=== PATIENT | male | born 1960 | race Caucasian/White ===

== ENCOUNTER 2020-05-25 00:18 | Emergency (ER) | payer SELFPAY ==
[2020-05-25 00:23] VITALS: BP 124/81; PULSE 108; RESP 16; TEMP 35.7; O2SAT 96; BMI 23.7
--- NOTE | 2020-05-25 00:50 | PC.NURSE ---
Pt resting quietly in bed at this time, law enforcement/C.O. at bedside, pt alert and oriented and answers questions appropriately.
--- NOTE | 2020-05-25 00:57 | W.ED.GENADLT ---
HPI - General Adult General: Chief complaint: Urogenital-Male Stated complaint: covid exposure 2 weeks ago Time Seen by Provider: 05/25/20 00:49 History of Present Illness: HPI narrative: Patient is a currently incarcerated 59-year-old male comes to the ED with left testicle pain. Patient says symptoms started earlier today. Today he is started having left testicle swelling and tenderness. He says his pain is currently a 7 out of 10. Denies any fever, chills, nausea/vomiting, abdominal pain, bladder or bowel symptoms, past history of STDs, genital lesions, discharge from [facility]. Patient did say he has a history of a right inguinal hernia that he had repaired years ago. Associated symptoms: Deny chest pain, dyspnea, headache(s), nausea, rash, palpitations or vomiting Review of Systems Const: Denies: fever(s), chills or fatigue Eyes: Denies: change in vision or eye discomfort ENMT: Denies: throat pain, odynophagia, nasal discharge or nasal congestion Card: Denies: chest pain, palpitations, edema, swelling of feet/ankles, dyspnea on exertion or orthopnea Resp: Denies: dyspnea, productive cough or non-productive cough GI: Denies: abdominal pain, nausea, vomiting, diarrhea, constipation or hematochezia : Reports: testicular pain (Left testicle) and scrotal swelling; Denies: flank pain, difficulty urinating, dysuria, hematuria, genital lesions or penile discharge Musc: Denies: neck pain, back pain or extremity swelling Skin/Breast: Denies: rash or new lesions Neuro: Denies: headache(s), numbness in extremities or weakness in extremities Physical Exam Const: COMMON NORMALS: no acute distress, patient oriented x3 and alert GENERAL APPEARANCE: cooperative and comfortable HENMT: COMMON NORMALS: normocephalic HEAD & SCALP: normocephalic MOUTH: Normal oral and palatal mucosa present THROAT: posterior oropharynx normal and uvula midline Neck/C-Spine: COMMON NORMALS: supple GENERAL: Yes normal visual inspection Resp: COMMON NORMALS: normal respiratory effort, No retractions, No use of accessory muscles and clear to auscultation bilaterally AUSCULTATION: clear to auscultation bilaterally Cardio: COMMON NORMALS: regular rate, regular rhythm, S1 normal heart sound present, S2 normal heart sound present, No gallops present (Cardio), No clicks present (Cardio), No murmurs present (Cardio) and Peripheral pulses 2+ throughout RATE: regular rate RHYTHM: regular rhythm HEART SOUNDS: S1 normal heart sound present and S2 normal heart sound present PERIPHERAL PULSES: Peripheral pulses 2+ throughout GI: COMMON NORMALS: Normal to inspection, nondistended, normoactive bowel sounds present, Soft to palpation, non-tender and no masses PALPATION: Yes Soft to palpation : COMMON NORMALS: Yes no CVA tenderness BLADDER/KIDNEY EXAM: Yes no CVA tenderness SCROTUM: Yes Scrotal tenderness present (Left side), Yes scrotal swelling Scrotal swelling laterality: left and No Scrotal lesions present TESTES: Yes testicular swelling Testicular swelling laterality: left and Yes testicular tenderness Testicular tenderness laterality: left Back/Pelvis: COMMON NORMALS: no CVA tenderness Extremity: COMMON NORMALS: normal to inspection Neuro: COMMON NORMALS: patient oriented x3 and moves all extremities SENSORIUM/ORIENTATION: Yes alert Skin: GENERAL SKIN EXAM: dry skin Course ED course: Patient was given 4 mg of IM morphine and 1 g of Ativan. Patient was then placed in Trendelenburg position with frog-leg positioning. Inguinal hernia was successfully reduced with minimal pain. Vital Signs: Vital signs: Vital Signs Temperature 96.2 F L 05/25/20 00:23 Pulse Rate 67 05/25/20 03:05 Respiratory Rate 16 05/25/20 03:05 Blood Pressure 118/78 05/25/20 03:05 Pulse Oximetry 96 05/25/20 03:05 MDM - General Adult MDM Narrative: Medical decision making narrative: Patient is an incarcerated 59-year-old male comes to the ED with left scrotal pain and swelling. Patient has a past medical history of right inguinal hernia that was surgically fixed. Ultrasound of scrotum was performed and it showed hernia with no incarceration or strangulation seen. Patient was given 4 mg of IM morphine and 1 g of Ativan. Patient was then placed in Trendelenburg position with frog-leg positioning. Inguinal hernia was successfully reduced with minimal pain. I placed an order with case management for patient to be referred to general surgery for further evaluation of inguinal hernia. Patient was discharged and told that case management will contact him in the next several days to set up an appoint with general surgery. Return to ED precautions given. Patient understood and agree with plan. Lab Data: Labs: Lab Results 05/25/20 Range/Units 01:24 Urine Color Yellow (Yellow) Urine Appearance Clear (CLEAR) Urine pH 6 (5-7) Ur Specific Gravit y 1.015 (1.005-1.030) Urine Protein Neg (Negative) Urine Glucose (UA) Norm (Normal) Urine Ketones Negative (Negative) Urine Blood Neg (Negative) Urine Nitrate Negative (Negative) Urine Bilirubin Neg (Negative) Urine Urobilinogen Norm (Negative) mg/dL Ur Leukocyte Angela ase Negative (Negative) Urine RBC 0-4 H (0-2) /hpf Urine WBC 0-4 H (0-5) /hpf Ur Squamous Epith Cells 0-4 H (0-5) /hpf Amorphous Sediment Not Reportable Urine Bacteria Trace (NONE) /hpf Imaging Data^: US: Attestation: I personally reviewed and interpreted this imaging study as follows: Radiologist's impression: Ultrasound scrotum?prelim report showed hernia with no incarceration or strangulation seen. Discharge Plan Discharge Patient Disposition: Home Clinical Impression: Reducible left inguinal hernia Condition: Stable Discharge Orders: Discharge ED (Routine); Ordered 05/25/20 Ordered By: Ben Herrmann Discharge Diet: Regular Discharge Activity: Increase activity as tolerated Patient Instructions: Inguinal Hernia (ED) Activity Restrictions/Additional Instructions: Follow-up with medical provider as directed. Case management should be contacting you in the next several days to set up an appointment with general surgery for further evaluation of inguinal hernia. Take [id number] ibuprofen or Tylenol for any pain. Limit lifting and straining. return to the ER or your medical provider if condition worsens. Please read and understand discharge instructions. If any questions, please ask. Coding Level of Care Code ED Durable Medical Equipment Technician for Carlos Fwd Exam Comprehensive
--- NOTE | 2020-05-25 01:02 | USR_ITS ---
PROCEDURE INFORMATION: Exam: US Scrotum Exam date and time: 05/25/2020 2:35 AM Age: 59 years old Clinical indication: Scrotum pain; Additional info: Left testicle swelling and pain TECHNIQUE: Imaging protocol: Real-time ultrasound of the scrotum and contents with color Doppler and image documentation. COMPARISON: No relevant prior studies available. FINDINGS: Right testicle: Normal. No mass. No torsion. Normal vascular flow. Left testicle: Normal. No mass. No torsion. Normal vascular flow. Epididymides: Normal. Scrotum: Normal. Inguinal hernia is seen in the left groin. US/US scrotum [id number] IMPRESSION: Left inguinal hernia is seen.
[2020-05-25] MEDS: HYDROcodone-acetaminophen 7.5-325 mg Tablet 1 TAB PO (01:13)
[2020-05-25 02:37] LABS: Specific Gravity, Urine 1.015 (1.005-1.030); Urine Appearance Clear (CLEAR); Urine Color Yellow (Yellow); pH Urine 6 (5-7)
[2020-05-25 02:38] LABS: Bilirubin Urine Neg (Negative); Blood Urine Neg (Negative); Glucose Urine UA Norm (Normal); Ketones Urine Negative (Negative); Leukocyte Esterase Urine Negative (Negative); Nitrate Urine Negative (Negative); Protein Urine Neg (Negative); Urobilinogen Urine Norm (Negative)
[2020-05-25 02:45] LABS: Add Urine Culture? No; Bacteria Urine TRACE /hpf; RBC Urine 0-4 /hpf (0-2); Squamous Epithelial Cell Urine 0-4 /hpf (0-5); WBC Urine 0-4 /hpf (0-5)
[2020-05-25] MEDS: LORazepam 2 mg/mL INJ 1 mL 1 MG IM (02:59)
[2020-05-25 03:00] VITALS: RESP 16; O2SAT 96
[2020-05-25] MEDS: morphine 4 mg/mL SDV 1 mL IM (03:00)
[2020-05-25 03:05] VITALS: BP 118/78; PULSE 67; RESP 16; O2SAT 96
[2020-05-25 03:28] VITALS: PULSE 62; O2SAT 96
--- NOTE | 2020-05-28 11:48 | DCPLANNER ---
sales consultant residential manager received message to schedule appointment with general surgery. sales consultant residential manager emailed [facility]. They will reviewed and contact patient with appointment information.
--- NOTE | 2020-05-31 11:45 | DCPLANNER ---
Centralized scheduling called [employer] about referral to general surgery patient. manager lvn told Ally that the referral to general surgery had been made for patient. manager lvn was told that patient was in the [facility] prison, was given the name of the person to ask for and the phone number to the prison. manager lvn called [facility] General Surgery, and informed clinic that patient was in prison and gave the clinic the name to ask for and the number to the prison for clinic to call to schedule the appointment.
--- NOTE | 2020-06-04 14:40 | DCPLANNER ---
Patient has a follow up appointment scheduled for Sunday, June 07, 2020 at 10:[address] Donis. Clinic will call patient with appointment information.
--- NOTE | 2020-06-13 08:23 | DCPLANNER ---
Patient had a follow up appointment scheduled for 06.07.[address] Donis at general surgery - patient did attend appointment.
== END 2020-05-25 03:30 | disposition home or self-care (01) ==
PROVIDERS: Emergency Provider Physician Assistant
DX: K40.90 Unilateral inguinal hernia, without obstruction or gangrene, not specified as recurrent (principal)
CPT/HCPCS: 76870; 81001; 96372; 99283; J2060; J2270

== ENCOUNTER → 2020-06-07 12:08 | Outpatient (BNVA) | payer SELFPAY | PROVIDERS: Visit Provider Surgery | DX: K40.90 Unilateral inguinal hernia, without obstruction or gangrene, not specified as recurrent (principal); Z01.812 Encounter for preprocedural laboratory examination | CPT/HCPCS: 87635 ==

== ENCOUNTER → 2020-06-14 16:26 | Outpatient (BNVA) | payer SELFPAY | PROVIDERS: Visit Provider Surgery | DX: Z01.812 Encounter for preprocedural laboratory examination (principal); K40.90 Unilateral inguinal hernia, without obstruction or gangrene, not specified as recurrent | CPT/HCPCS: 87635 ==

== ENCOUNTER 2020-06-19 06:03 | Day surgery (SDC) | payer SELFPAY ==
[2020-06-18 11:47] VITALS: BMI 23.7
[2020-06-19] VITALS (14 sets, daily range): BP systolic 114–141; BP diastolic 68–93; PULSE 60–79; RESP 12–20; TEMP 36.2–36.6; O2SAT 96–100
--- NOTE | 2020-06-19 06:50 | W.PM.OPSUD ---
Surgery/Procedure H&P Update DATE OF PROCEDURE: June 19, 2020 DATE H&P PERFORMED: 06/07/20 H&P UPDATE INFORMATION: I have reviewed H&P completed within last 30 days, I have examined patient prior to procedure and No changes to prior documentation PREOP DIAGNOSIS: Left inguinal hernia PLANNED PROCEDURE: Operation Date: 06/19/20 07:00 Proposed Procedures p Laparoscopic Inguinal Hernia Repair 99843 K40.90(Not Applicable) - Cj Donis MD
--- NOTE | 2020-06-19 06:54 | ANES.PREANE2 ---
Pre-Anesthetic Assessment Pre-Anesthetic Assessment: Height/Weight: Height 1.8 m Weight 77.111 kg Preop Diagnosis: Left inguinal hernia Proposed Procedure: Operation Date: 06/19/20 07:00 Proposed Procedures p Laparoscopic Inguinal Hernia Repair 28996 K40.90(Not Applicable) - Cj Donis MD Was Beta Estephania taken within 24 hours: N/A Last intake: Intake Last Liquid Date 06/18/20 Last Liquid Time 23:00 Last Solid Date 06/18/20 Last Solid Time 23:00 Social: Social History: Tobacco and No alcohol Exam: Pre-Anes Outpt Exam: alert, oriented x 3 and regular rate & rhythm Additional Exam Findings (including area of procedure): rhonchi Airway: Submandibular: WNL Cervical ROM: WNL MP: 2 Dentition: Chipped Additional comments: Very poor dentition, multiple missing and broken Pulmonary: Pulmonary: COPD Anesthetic Plan: ASA status: 3 Anesthesia: General Risk of > 500 ml blood loss (7ml/kg in children): No PFSH Anesthesia PFSH: Surgical History (Updated 06/07/20 @ 11:52 by Cj Donis MD) Status post right inguinal hernia repair Family History (Updated 06/07/20 @ 11:26 by Nelly Honeycutt LPN) Other Cancer Social History (Updated 06/07/20 @ 11:26 by Nelly Honeycutt LPN) Smoking and tobacco status: current every day smoker cigarettes Alcohol intake: current Alcohol intake frequency: few times a month Data Anesthesia Cardiac Studies: No Data to Display
[2020-06-19] MEDS: sodium chloride 0.9% 1,000 ML 30 ML IV (06:58)
--- NOTE | 2020-06-19 08:22 | P.OP_ITS ---
Operative Report Date of procedure: June 19, 2020 Pre-op Diagnosis: Left inguinal hernia Post-op Findings: Left indirect inguinal hernia Procedure Done: Laparoscopic total extraperitoneal repair of left indirect in guinal hernia with Surgimax 3D mesh measuring 16 x 11 cm Specimens removed/disposition: None Pathology: none sent Surgeon: Cj Donis Anesthesia: General Condition: stable Disposition: PACU Procedure: The patient was taken to the operating room. After IV antibiotic was administered, the abdomen was prepped and draped in a sterile manner. Using a 15 blade, a 1.0 cm transverse incision was made infraumbilically on the left side. Subcutaneous tissue was divided using electrocautery and the anterior rectus sheath divided using an 11 blade. The rectus muscle was retracted late rally and the extraperitoneal space identified. A 11 mm port was placed and 12 mm of pneumoperitoneum was created. A 10 mm 30? scope was introduced and the retrorectus space was opened using the camera up to the pubic symphysis and 5 mm ports were placed in the midline, one 2-fingerbreadths above the pubic symphysis and the other midway between these two ports under direct visualization. Blunt d issection was carried out to open up the tissue in the midline and to the pubic symphysis, which was identified. The dissection was then carried laterally where the iliopubic tract was identified. There was no femoral, obturator or direct hernia noted. The inferior epigastric artery was identified and dissection was carried posterior to it and laterally, the space was opened up to the level of the umbilicus superior to the anterior superior iliac spine. I then proceeded to dissect out the spermatic cord and the indirect hernial sac was reduced, divided and tied off with 0 Vicryl Endoloop. 16 x 11cm Surgimax 3D mesh was rolled and introduced through the 10 mm port and then rolled laterally and apposed well against the abdominal wall to cover the myopectineal orifice completely. 10 Cc of 0.5% Marcaine was infiltrated into the preperitoneal space. The extraperitoneal space was desufflated under direct visualization to ensure no slippage of hernial sac under the mesh. All ports were removed, the anterior rectus fascia at the infraumbilical port closed using figure of eight 0 Vicryl sutures, subcutaneous tissue approximated using 3-0 Vicryl sutures and skin at all three port sites were closed using running subcuticular 4-0 Monocryl sutures and Dermabond. 10 mL of 0.5% Marcaine was infiltrated at the port sites. The patient was stable throughout the procedure.
--- NOTE | 2020-06-19 08:37 | SUR.PHASEI ---
0837- ORAL AIRWAY OUT, SIMPLE MASK IN PLACE AT 6LPM SAT 100%
--- NOTE | 2020-06-19 13:52 | PC.NURSE ---
PT UNABLE TO VOID. BLADDER SCAN WAS 360ML. PT STRAIGHT CATHED PER DR JACINTA CHOI WITH 425ML YELLOW CLEAR URINE RETURNED. PT DISCHARGED WITH FRIEND WITH INSTRUCTIONS TO RETURN TO ED IN HAS NOT VOIDED IN 4 TO 6 HRS.
--- NOTE | 2020-06-19 14:58 | ANE.PACU2 ---
Inpatient post-anesthesia follow up: Airway intact: Yes Vital signs: Temperature 97.2 F Pulse Rate 79 Respiratory Rate 18 Blood Pressure 118/68 Pulse Oximetry 99 Oxygen Delivery Me thod Room Air Oxygen Flow Rate 6 Fraction of Inspir ed Oxygen Hydration adequate: Yes Nausea and vomiting: No Pain level: 2 Mental status: Baseline
== END 2020-06-19 13:50 | disposition home or self-care (01) ==
PROVIDERS: Visit Provider Surgery
PROC: (CPT 49650; principal; 2020-06-19 07:00)
DX: K40.90 Unilateral inguinal hernia, without obstruction or gangrene, not specified as recurrent (principal); J44.9 Chronic obstructive pulmonary disease, unspecified; F17.210 Nicotine dependence, cigarettes, uncomplicated
CPT/HCPCS: 49650; C1781; J0330; J0690; J1100; J2370; J2405; J2704; J2710; J3010; J3490; J7030

== ENCOUNTER → 2021-10-14 15:22 | Outpatient (BNVA) | payer SELFPAY | PROVIDERS: Visit Provider Podiatrist Foot & Ankle Surgery | DX: S92.401A Displaced unspecified fracture of right great toe, initial encounter for closed fracture (principal); X58.XXXA Exposure to other specified factors, initial encounter | CPT/HCPCS: 73630 ==

== ENCOUNTER → 2021-10-28 15:01 | Outpatient (BNVA) | payer SELFPAY | PROVIDERS: Visit Provider Podiatrist Foot & Ankle Surgery | DX: S92.421D Displaced fracture of distal phalanx of right great toe, subsequent encounter for fracture with routine healing (principal); X58.XXXD Exposure to other specified factors, subsequent encounter | CPT/HCPCS: 73630 ==

== ENCOUNTER 2024-04-29 08:27 | Emergency (ER) | payer SELFPAY ==
[2024-04-29 08:37] VITALS: BP 121/90; PULSE 93; RESP 22; TEMP 36.9; O2SAT 90
--- NOTE | 2024-04-29 08:40 | ECG_ITS ---
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
--- NOTE | 2024-04-29 08:40 | XRR_ITS ---
PROCEDURE INFORMATION: Exam: XR Chest Exam date and time: 04/29/2024 9:26 AM Age: 63 years old Clinical indication: Shortness of breath; Additional info: Dyspnea/cough TECHNIQUE: Imaging protocol: Radiologic exam of the chest. Views: 1 view. COMPARISON: No relevant prior studies available. FINDINGS: Lungs: Unremarkable. No consolidation. Pleural spaces: Unremarkable. No pleural effusion. No pneumothorax. Heart/Mediastinum: Unremarkable. No cardiomegaly. Bones/joints: Widening of the right acromioclavicular joint, likely from prior surgery. Chronic fracture deformity of the posterior arch of the right 2nd rib. Chronic fracture deformity of the lateral arch of the right 8th rib. XR/XR chest 1V portable [id number] IMPRESSION: No acute cardiopulmonary process.
[2024-04-29 09:13] LABS: Basophils % 0.2 %; Lymphocytes # 1.4 10^3/uL (0.8-4.8); Lymphocytes % 8.9 %; Mean Corpuscular Hemoglobin 29.9 pg (27-33); Mean Corpuscular Volume 90.4 fl (82-101); Mean Platelet Volume 9.2 fL (7.4-10.4); Monocytes # 1.2 10^3/uL (0.2-0.9); Monocytes % 7.7 %; Neutrophils # 12.56 10^3/uL (1.8-7.7); Neutrophils % 82.8 %; Nucleated Red Blood Cells % 0 %; Platelet Count 196 10^3/cmm (157-399); Red Blood Count 5.86 10^6/uL (3.85-5.65); Red Cell Distribution Width 14.6 % (12.1-15.1); White Blood Count 15.17 10^3/uL (3.29-11.43)
--- NOTE | 2024-04-29 09:20 | W.ED.SOB ---
HPI - SOB/Dyspnea General: Chief Complaint: Shortness of Breath/Dyspnea Stated Complaint: congestion, cough Time Seen by Provider: 04/29/24 08:28 History of Present Illness: HPI Narrative: 63-year-old male presents emergency room complaining of congestion and cough for the last 3 days. Subjective fever as well. Pain with deep inspiration and cough mildly productive cough of discolored sputum he denies any hemoptysis. Chest pain is only associated with cough and deep inspiration. No radiation to the neck arms or back. Patient is a smoker does not normally use oxygen. Associated symptoms: Reports chest congestion and chest pain (Associated with cough and inspiration); Deny abdominal pain or fever(s) Related Data Previous Rx's Medication Instructions Recorded albuterol sulfate 90 mcg/actuation 2 inh inhalation Q4H PRN shortness 04/29/24 aerosol inhaler of breath or wheezing #18 grams methylprednisolone 4 mg tablets in See Rx Instructions PO .COMPLEX 04/29/24 a dose pack (Medrol (Apolinar)) #21 ea Allergies Allergy/AdvReac Type Severity Reaction Status Date / Time No Known Allergies Allergy Verified 10/28/21 15:07 Review of Systems Const: Denies: fever(s) or chills Card: Reports: chest pain (Associated with cough and inspiration) Resp: Reports: dyspnea, productive cough, wheezing and chest congestion GI: Denies: abdominal pain : Denies: dysuria, urinary frequency or urinary urgency Musc: Denies: neck pain or back pain Skin/Breast: Denies: rash PFSH ED PFSH: Surgical History Status post left inguinal hernia repair (06/19/20) Status post right inguinal hernia repair Family History Other Cancer Social History Smoking and tobacco/nicotine status: current every day tobacco/nicotine user cigarettes Alcohol intake: current Alcohol intake frequency: few times a month Physical Exam Const: GENERAL APPEARANCE: cooperative ORIENTATION/CONSCIOUSNESS: Yes awake, Yes oriented to person, Yes oriented to place and Yes oriented to time HENMT: COMMON NORMALS: normocephalic, atraumatic and hearing grossly normal bilaterally HEAD & SCALP: normocephalic and atraumatic Resp: EFFORT & INSPECTION: Yes tachypneic AUSCULTATION: rhonchi and wheezes Cardio: COMMON NORMALS: regular rate, regular rhythm and No murmurs present (Cardio) RATE: regular rate RHYTHM: regular rhythm GI: COMMON NORMALS: Soft to palpation and No hepatosplenomegaly present AUSCULTATION: Yes normoactive bowel sounds PALPATION: Yes Soft to palpation, No Tenderness to palpation present (GI), No Guarding due to palpation present (GI) and Yes No hepatosplenomegaly present Extremity: COMMON NORMALS: normal to inspection, capillary refill normal, no clubbing, cyanosis or edema, no calf tenderness and no pedal edema Neuro: SENSORIUM/ORIENTATION: Yes oriented to person, Yes oriented to place and Yes oriented to time Skin: COMMON NORMALS: no rashes or lesions noted GENERAL SKIN EXAM: no rashes or lesions noted Course Vital Signs: Vital signs: Vital Signs Temperature 98.4 F 04/29/24 08:37 Pulse Rate 107 H 04/29/24 10:52 Respiratory Rate 18 04/29/24 09:55 Blood Pressure 113/76 04/29/24 10:52 Pulse Oximetry 95 04/29/24 10:52 Oxygen Delivery Me thod Room Air 04/29/24 09:55 MDM - SOB/Dyspnea Medical Decision Making Moderate exacerbation of his COPD worsened by influenza A. He is outside of 48-hour window Tamiflu is not likely to be helpful discharge home with albuterol and methylprednisone taper pack. Encouraged to cease tobacco products follow-up with primary care Medical Records I reviewed the patient's medical records. Lab Data I reviewed the patient's lab results. 04/29/24 08:58 04/29/24 08:58 Labs/Radiology: Radiology Impressions Chest X-Ray 04/29/24 08:40 IMPRESSION: No acute cardiopulmonary process. Laboratory Results WBC 15.17 10^3/uL (3.29-11.43) H 04/29/24 08:58 RBC 5.86 10^6/uL (3.85-5.65) H 04/29/24 08:58 Hgb 17.50 g/dL (11.27-16.99) H 04/29/24 08:58 Hct 53.0 % (37-53) 04/29/24 08:58 MCV 90.4 fl (82-101) 04/29/24 08:58 MCH 29.9 pg (27-33) 04/29/24 08:58 MCHC 33.0 g/dL (30-55) 04/29/24 08:58 RDW 14.6 % (12.1-15.1) 04/29/24 08:58 Plt Count 196 10^3/cmm (157-399) 04/29/24 08:58 MPV 9.2 fL (7.4-10.4) 04/29/24 08:58 Neut % (Auto) 82.8 % 04/29/24 08:58 Lymph % (Auto) 8.9 % 04/29/24 08:58 Colbert % (Auto) 7.7 % 04/29/24 08:58 Eos % (Auto) 0.0 % 04/29/24 08:58 Baso % (Auto) 0.2 % 04/29/24 08:58 Neut # (Auto) 12.56 10^3/uL (1.8-7.7) H 04/29/24 08:58 Lymph # (Auto) 1.4 10^3/uL (0.8-4.8) 04/29/24 08:58 Colbert # (Auto) 1.2 10^3/uL (0.2-0.9) H 04/29/24 08:58 Eos # (Auto) 0.0 10^3/uL (0.0-0.8) 04/29/24 08:58 Baso # (Auto) 0.0 10^3/uL (0.0-0.1) 04/29/24 08:58 Nucleated RBC % (auto) 0 % 04/29/24 08:58 Nucleated RBCs # 0.0 /100WBC 04/29/24 08:58 Sodium 132 mmol/L (136-145) L 04/29/24 08:58 Potassium 4.0 mmol/L (3.5-5.1) 04/29/24 08:58 Chloride 95 mmol/L (98-107) L 04/29/24 08:58 Carbon Dioxide 25 mmol/L (22-29) 04/29/24 08:58 Anion Gap 16.0 (5-19) 04/29/24 08:58 BUN 20 mg/dL (8-23) 04/29/24 08:58 Creatinine 1.1 mg/dL (0.7-1.2) 04/29/24 08:58 GFR Calculation 67.6 mL/min (90-130) L 04/29/24 08:58 Glucose 152 mg/dL (65-115) H 04/29/24 08:58 Calculated Osmolality 280 mOsm/kg (285-295) L 04/29/24 08:58 Calcium 9.0 mg/dL (8.5-10.5) 04/29/24 08:58 Total Bilirubin 0.4 mg/dL (0.15-1.2) 04/29/24 08:58 AST 29 U/L (0-40) 04/29/24 08:58 ALT 25 U/L (0-41) 04/29/24 08:58 Alkaline Phosphatase 90 U/L (40-130) 04/29/24 08:58 Total Protein 7.0 g/dL (6.6-8.7) 04/29/24 08:58 Albumin 3.9 g/dL (3.5-5.2) 04/29/24 08:58 Globulin 3.1 g/dL (1.3-4.6) 04/29/24 08:58 Coronavirus (PCR) Negative (Negative) 04/29/24 08:45 Influenza A (PCR) Positive (Negative) 04/29/24 08:45 Influenza Type B (PCR) Negative (Negative) 04/29/24 08:45 RSV (PCR) Negative (Negative) 04/29/24 08:45 All radiology interpretation(s) finalized by discharge Discharge Plan Discharge Patient Disposition: Home Clinical Impression: Influenza A Condition: Stable Prescriptions: New methylprednisolone [Medrol (Apolinar)] 4 mg tablets,dose pack See Rx Instructions .ROUTE .COMPLEX Qty: 21 0RF Rx Instructions: orally per package directions albuterol sulfate 90 mcg/actuation HFA aerosol inhaler 2 inh INHALATION Q4H PRN (Reason: shortness of breath or wheezing) Qty: 18 0RF Discharge Orders: Discharge ED (Routine); Ordered 04/29/24 Ordered By: Quinn Quintanilla Patient Instructions: Opioid Safety, Pain Management Activity Restrictions/Additional Instructions: [facility] It is very important that you follow up as instructed or that you return to the Emergency Department should you have concerns or if your condition changes or worsens in any way. You were seen in the emergency room with difficulty breathing and a cough for the last 3 days. Chest x-ray was normal your white count is elevated and you tested positive for influenza. You are outside the window for any treatment with antivirals recommend supportive cares including prednisone taper and albuterol as needed follow-up with your primary care doctor if not improving or have worsening of symptoms Coding Level of Care Code ED Station Installer for Carlos Bahena
[2024-04-29 09:30] LABS: Covid PCR NEGATIVE (Negative); Influenza A POSITIVE (Negative); Influenza B NEGATIVE (Negative); Respiratory Syncytial Virus Ce NEGATIVE (Negative)
[2024-04-29 09:34] LABS: Alanine Aminotransferase 25 U/L (0-41); Albumin Level 3.9 g/dL (3.5-5.2); Alkaline Phosphatase 90 U/L (40-130); Aspartate Amino Transferase 29 U/L (0-40); Blood Urea Nitrogen 20 mg/dL (8-23); Carbon Dioxide 25 mmol/L (22-29); Chloride 95 mmol/L (98-107); Creatinine Clr Calc Pharmacy 76.5586; Globulin 3.1 g/dL (1.3-4.6); Glomerular Filtration Rate 67.6 mL/min (90-130); Glucose 152 mg/dL (65-115); Osmolality Calculated 280 mOsm/kg (285-295); Sodium 132 mmol/L (136-145); Total Bilirubin 0.4 mg/dL (0.15-1.2)
[2024-04-29] MEDS: dexamethasone 10 mg/mL INJ IM (09:34)
[2024-04-29] MEDS: ipratropium-albuterol 3 mL Neb INHALATION (09:53)
[2024-04-29 09:55] VITALS: PULSE 96; RESP 18; O2SAT 95
[2024-04-29 09:58] VITALS: PULSE 90
[2024-04-29 10:52] VITALS: BP 113/76; PULSE 107; O2SAT 95
== END 2024-04-29 10:55 | disposition home or self-care (01) ==
PROVIDERS: Emergency Provider Family Medicine
DX: J10.1 Influenza due to other identified influenza virus with other respiratory manifestations (principal); Z11.52 Encounter for screening for COVID-19; F17.210 Nicotine dependence, cigarettes, uncomplicated
CPT/HCPCS: 71045; 80053; 85025; 87637; 93005; 94640; 96372; 99285; J1100

== ENCOUNTER 2024-10-14 19:07 | Emergency (ER) | payer SELFPAY ==
[2024-10-14 19:18] VITALS: BP 88/62; PULSE 86; RESP 24; O2SAT 91; BMI 23.4
--- NOTE | 2024-10-14 19:26 | ECG_ITS ---
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
--- NOTE | 2024-10-14 19:28 | XRR_ITS ---
PROCEDURE INFORMATION: Exam: XR Chest Exam date and time: 10/14/2024 7:38 PM Age: 64 years old Clinical indication: Shortness of breath; Hypotension; Hypoxia; Additional info: SOB TECHNIQUE: Imaging protocol: Radiologic exam of the chest. Views: 1 view. COMPARISON: CR XR chest 1V portable [id number] 04/29/2024 9:26 AM FINDINGS: Lungs: Mild prominence of the perihilar vascular markings similar to prior imaging, likely a chronic configuration. No new airspace disease. No overt pulmonary edema. Pleural spaces: No significant pleural effusion. No pneumothorax. Heart/Mediastinum: Unremarkable. No cardiomegaly. Bones/joints: Remote right rib injuries. No acute osseous findings. XR/XR chest 1V portable [id number] IMPRESSION: No acute findings.
[2024-10-14 19:36] VITALS: TEMP 36.5
[2024-10-14 19:50] LABS: Hematocrit 54.4 % (37-53); Hemoglobin 18.00 g/dL (11.27-16.99); Mean Corpuscular HGB Conc 33.1 g/dL (30-55); Mean Corpuscular Hemoglobin 29.3 pg (27-33); Mean Corpuscular Volume 88.6 fl (82-101); Nucleated Red Blood Cells % 0 %; Platelet Count 192 10^3/cmm (157-399); Red Blood Count 6.14 10^6/uL (3.85-5.65); White Blood Count 11.86 10^3/uL (3.29-11.43)
--- NOTE | 2024-10-14 19:55 | W.ED.SOB ---
HPI - SOB/Dyspnea General: Chief Complaint: Shortness of Breath/Dyspnea Stated Complaint: Dr becerril from urgent care SOB Time Seen by Provider: 10/14/24 19:22 History of Present Illness: HPI Narrative: 64-year-old male says he has been breath, with progression since night. He says it started with fever. Has had a cough, minimal sputum production. No leg swelling. No sick contacts. Shortness of breath became worse this afternoon. He presented to urgent care, and today her had room air saturations at 85% or so. He was given a nebulizer treatment, and is sent here for further evaluation and treatment. He denies any chest pain Related Data Previous Rx's ?Medication ?Instructions ?Recorded doxycycline hyclate 100 mg tablet 100 mg PO BID 7 days #14 tabs 10/14/24 methylprednisolone 4 mg tablets in See Rx Instructions PO .COMPLEX 10/14/24 a dose pack (Medrol (Apolinar)) #21 ea Allergies Allergy/AdvReac Type Severity Reaction Status Date / Time No Known Allergies Allergy Verified 10/14/24 18:38 [facility] PFSH: Surgical History Status post left inguinal hernia repair (06/19/20) Status post right inguinal hernia repair Family History Other Cancer Social History Smoking and tobacco/nicotine status: current every day tobacco/nicotine user cigarettes Alcohol intake: current Alcohol intake frequency: few times a month Physical Exam Const: COMMON NORMALS: no acute distress GENERAL APPEARANCE: cooperative and ill appearing (mildly); not frail appearing HENMT: COMMON NORMALS: normocephalic, atraumatic and Normal external nose present HEAD & SCALP: normocephalic and atraumatic FACE & SINUS: normal facial exam and face symmetric NOSE: Normal external nose present Eye: COMMON NORMALS: Equal, round and reactive pupils present and EOMs intact bilaterally PUPIL: Yes Equal, round and reactive pupils present Neck/C-Spine: GENERAL: Yes trachea midline Chest: CHEST: Yes Symmetrical chest wall rise Resp: EFFORT & INSPECTION: Yes tachypneic and No retractions AUSCULTATION: rhonchi and wheezes Cardio: COMMON NORMALS: regular rate and regular rhythm RATE: regular rate RHYTHM: regular rhythm GI: COMMON NORMALS: Normal to inspection, nondistended, normoactive bowel sounds present Extremity: COMMON NORMALS: no pedal edema Neuro: ROHITH COMA SCALE: document GCS findings Nogal coma scale eye opening: Spontaneous Rohith coma scale verbal response: Orientated Rohith coma scale motor response: Obey commands Rohith coma scale total score: 15 SENSORY EXAM: Yes extremities (intact) Psych: COMMON NORMALS: speech normal SPEECH: Yes normal speech Skin: COMMON NORMALS: no rashes or lesions noted GENERAL SKIN EXAM: no rashes or lesions noted Course Vital Signs: Vital signs: Vital Signs Temperature 97.7 F 10/14/24 19:36 Pulse Rate 87 10/14/24 22:34 Respiratory Rate 18 10/14/24 22:34 Blood Pressure 136/64 10/14/24 22:34 Pulse Oximetry 97 10/14/24 22:34 Oxygen Delivery Me thod Room Air 10/14/24 20:06 MDM - SOB/Dyspnea Medical Decision Making Patient is significantly improved after DuoNeb and Solu-Medrol here. He is off of oxygen. Blood gas shows no CO2 retention, and appropriate oxygen levels. His BNP and troponin are normal. His lactic acid is 1.8. Chest x-ray is clear. He is no longer tachypneic. Saturations are above 92% on room air. With improvement, he will be allowed home on antibiotics, steroid taper, and an inhaler, scheduled for the first 48 hours, then as needed. To return if he is worsening despite treatment. Lab Data 10/14/24 19:40 10/14/24 19:40 Labs/Radiology: Radiology Impressions Chest X-Ray 10/14/24 19:28 IMPRESSION: No acute findings. Laboratory Results WBC 11.86 10^3/uL (3.29-11.43) H 10/14/24 19:40 RBC 6.14 10^6/uL (3.85-5.65) H 10/14/24 19:40 Hgb 18.00 g/dL (11.27-16.99) H 10/14/24 19:40 Hct 54.4 % (37-53) H 10/14/24 19:40 MCV 88.6 fl (82-101) 10/14/24 19:40 MCH 29.3 pg (27-33) 10/14/24 19:40 MCHC 33.1 g/dL (30-55) 10/14/24 19:40 RDW 14.8 % (12.1-15.1) 10/14/24 19:40 Plt Count 192 10^3/cmm (157-399) 10/14/24 19:40 MPV 9.7 fL (7.4-10.4) 10/14/24 19:40 Neut % (Auto) 77.0 % 10/14/24 19:40 Lymph % (Auto) 12.1 % 10/14/24 19:40 Eagle % (Auto) 9.9 % 10/14/24 19:40 Eos % (Auto) 0.3 % 10/14/24 19:40 Baso % (Auto) 0.4 % 10/14/24 19:40 Neut # (Auto) 9.11 10^3/uL (1.8-7.7) H 10/14/24 19:40 Lymph # (Auto) 1.4 10^3/uL (0.8-4.8) 10/14/24 19:40 Eagle # (Auto) 1.2 10^3/uL (0.2-0.9) H 10/14/24 19:40 Eos # (Auto) 0.0 10^3/uL (0.0-0.8) 10/14/24 19:40 Baso # (Auto) 0.1 10^3/uL (0.0-0.1) 10/14/24 19:40 Nucleated RBC % (auto) 0 % 10/14/24 19:40 Nucleated RBCs # 0.0 /100WBC 10/14/24 19:40 Specimen Type Arterial 10/14/24 19:57 Sample Site Brachial, right 10/14/24 19:57 ABG pH 7.39 (7.35-7.45) 10/14/24 19:57 ABG pCO2 40.2 mmHg (35-45) 10/14/24 19:57 ABG pO2 190.0 mmHg (80.0-100.0) H 10/14/24 19:57 ABG HCO3 24.3 mmol/L (22-26) 10/14/24 19:57 ABG Base Excess -0.7 mmol/L (-2.0-2.0) 10/14/24 19:57 Meek Test N/a 10/14/24 19:57 Hematocrit 55.5 % (42-52) H 10/14/24 19:57 Hgb O2 Saturation 98.3 % (95-100) 10/14/24 19:57 Carboxyhemoglobin 0.6 %THgb (0.4-20.1) 10/14/24 19:57 Methemoglobin 0.8 % (0.4-1.5) 10/14/24 19:57 Total Hemoglobin 18.1 g/dL (14-18) H 10/14/24 19:57 O2 Delivery Device Room air 10/14/24 19:57 Ceo And President ID [email or web address] 10/14/24 19:57 Sodium 137 mmol/L (136-145) 10/14/24 19:40 Potassium 3.8 mmol/L (3.5-5.1) 10/14/24 19:40 Chloride 100 mmol/L (98-107) 10/14/24 19:40 Carbon Dioxide 21 mmol/L (22-29) L 10/14/24 19:40 Anion Gap 19.8 (5-19) H 10/14/24 19:40 BUN 24 mg/dL (8-23) H 10/14/24 19:40 Creatinine 0.9 mg/dL (0.7-1.2) 10/14/24 19:40 GFR Calculation 85.0 mL/min (90-130) L 10/14/24 19:40 Glucose 135 mg/dL (65-115) H 10/14/24 19:40 Calculated Osmolality 290 mOsm/kg (285-295) 10/14/24 19:40 Lactic Acid 1.8 mmol/L (0.5-2.2) 10/14/24 19:40 Calcium 9.1 mg/dL (8.5-10.5) 10/14/24 19:40 Total Bilirubin 0.4 mg/dL (0.15-1.2) 10/14/24 19:40 AST 18 U/L (0-40) 10/14/24 19:40 ALT 21 U/L (0-41) 10/14/24 19:40 Alkaline Phosphatase 86 U/L (40-130) 10/14/24 19:40 Troponin T Baseline 8 ng/L (0-15) 10/14/24 19:40 NT-Pro-B Natriuret Pep 47 pg/mL (0-125) 10/14/24 19:40 Total Protein 6.9 g/dL (6.6-8.7) 10/14/24 19:40 Albumin 4.1 g/dL (3.5-5.2) 10/14/24 19:40 Globulin 2.8 g/dL (1.3-4.6) 10/14/24 19:40 All radiology interpretation(s) finalized by discharge Discharge Plan Discharge Patient Disposition: Home Clinical Impression: Acute bronchitis with wheezing Condition: Stable Prescriptions: New methylprednisolone [Medrol (Apolinar)] 4 mg tablets,dose pack See Rx Instructions .ROUTE .COMPLEX Qty: 21 0RF Rx Instructions: orally per package directions doxycycline hyclate 100 mg tablet 100 mg PO BID 7 Days Qty: 14 0RF No Action methylprednisolone sodium succ 125 mg recon soln 125 mg IV ONCE Qty: 1 0RF Discharge Orders: Discharge ED (Routine); Ordered 10/14/24 Ordered By: Rajeev Keating Patient Instructions: Acute Bronchitis (ED), Opioid Safety, Pain Management, Patient Portal & Brenda Instructions Activity Restrictions/Additional Instructions: Antibiotics and steroids as directed. Use the inhaler you were dispensed every 4 hours while awake for the first 48 hours, whether you feel you needed or not. You may use it as needed following that. Return for worsening shortness of breath despite treatment, development of chest pain, fever despite 3-4 doses of antibiotics, any other concerning symptoms. Follow-up with your doctor next week. Call for an appointment. Print Language: Guinean Coding Level of Care Code ED Certified Anesthesiologist Assistant for Carlos Bahena
[2024-10-14 19:57] VITALS: PULSE 89; RESP 18; O2SAT 96
[2024-10-14 20:06] VITALS: BP 136/64; PULSE 93; RESP 18; O2SAT 98
[2024-10-14 20:08] LABS: ABG PCO2 40.2 mmHg (35-45); ABG PH Result 7.39 (7.35-7.45); Arterial Blood Gas Hematocrit 55.5 % (42-52); Blood Gas Sample Site Brachial, right; Blood Gas Sample Type Arterial; Carboxyhemoglobin 0.6 %THgb (0.4-20.1); HCO3 ABG 24.3 mmol/L (22-26); Methemoglobin 0.8 % (0.4-1.5); PO2 ABG 190.0 mmHg (80.0-100.0)
[2024-10-14 20:08] LABS: Troponin(5th) Baseline 8 ng/L (0-15)
[2024-10-14 20:09] LABS: Lactic Sepsis W/Reflex 1.8 mmol/L (0.5-2.2)
[2024-10-14] MEDS: methylPREDNISolone sod succ 125 mg/2 mL INJ IVP (20:16)
[2024-10-14 20:25] LABS: Alanine Aminotransferase 21 U/L (0-41); Albumin Level 4.1 g/dL (3.5-5.2); Alkaline Phosphatase 86 U/L (40-130); Aspartate Amino Transferase 18 U/L (0-40); Blood Urea Nitrogen 24 mg/dL (8-23); Calcium 9.1 mg/dL (8.5-10.5); Carbon Dioxide 21 mmol/L (22-29); Chloride 100 mmol/L (98-107); Creatinine Clr Calc Pharmacy 88.7811; Globulin 2.8 g/dL (1.3-4.6); Glucose 135 mg/dL (65-115); NT Pro B Type Natriuretic Pept 47 pg/mL (0-125); Osmolality Calculated 290 mOsm/kg (285-295); Sodium 137 mmol/L (136-145); Total Protein 6.9 g/dL (6.6-8.7)
[2024-10-14 20:27] LABS: Anion Gap 19.8 (5-19); Potassium 3.8 mmol/L (3.5-5.1)
[2024-10-14 22:34] VITALS: BP 136/64; PULSE 87; RESP 18; O2SAT 97
== END 2024-10-14 22:37 | disposition home or self-care (01) ==
PROVIDERS: Emergency Provider Emergency Medicine
DX: J20.9 Acute bronchitis, unspecified (principal); R06.2 Wheezing; F17.210 Nicotine dependence, cigarettes, uncomplicated
CPT/HCPCS: 36415; 36600; 71045; 80053; 82805; 83605; 83880; 84484; 85025; 87040; 93005; 94640; 96374; 99285; J2919; J7030; J9999